=== PATIENT | female | born 1985 | race Caucasian/White ===

== ENCOUNTER → 2017-04-07 | Outpatient (CLI) | payer OTHER ==
[~2017-04-07] MED LIST: ACET-1966 PO; ACET-3017 PO; GLYB1TAB PO; IBUP600T22 PO; PREN-127 PO
--- NOTE | 2017-04-07 14:07 | RADIOLOGY IMAGING REPORT ---
[place] [facility] [place] NAME: Kayli Barcenas : 1985 MR: [id number] V: [id number] EXAM DATE: ORDERING PHYSICIAN: IRINEO SOLARES TECHNOLOGIST: Location: [facility] [place] Patient: Kayli Barcenas : 1985 Visit/Account:[id number] Date of Sevice: 04/07/2017 ABDOMEN W/O CONTRAST HISTORY: Abdominal pain TECHNIQUE: CT abdomen without intravenous contrast. Contiguous helical images was performed from the lung bases to the iliac crests. One of the following dose optimization techniques was utilized in the performance of this exam: Autom ated exposure control; adjustment of the mA and/or kV according to the patient's size; or use of an i terative reconstruction technique. Specific details can be referenced in the facility's radiology C T exam operational policy. CONTRAST: None. COMPARISON: None. FINDINGS: Visualized lung bases: Negative. Hepatobiliary: Liver measures 18 cm in length which is upper limits of normal. Numerous gallstones are noted in gallbladder. There is perhaps mild gallbladder wall thickening but no inflammatory jerez ges. If there is concern for cholecystitis, recommend an ultrasound. Bile ducts appear to be decomp ressed. Spleen: Negative. Adrenals: Negative. Kidneys/Visualized : Negative. Pancreas: Negative. Visualized GI: Negative. Vessels/spaces/nodes: Negative. Bones/soft tissues: Small umbilical hernia has fat in the defect. IMPRESSION: 1. The gallbladder is filled with stones and there is perhaps mild gallbladder wall thickening. If there is concern for cholecystitis, recommend a gallbladder ultrasound for further evaluation. 2. Otherwise no acute pathology. Report Dictated By: Jeremy Mejía MD at 04/07/2017 1:56 PM Report E-Signed By: Jeremy Mejía MD at 04/07/2017 2:03 PM WSN:[id number]
== END ==
LOC: CT 01:07
PROVIDERS: ATTEND Family Medicine
DX: K80.80 Other cholelithiasis without obstruction (principal); K44.9 Diaphragmatic hernia without obstruction or gangrene
CPT/HCPCS: 74150